=== PATIENT | female | born 1970 | race Hispanic/Latino ===

== ENCOUNTER 2019-02-15 09:43 | Day surgery (SDC) | payer MEDICAID ==
[~2019-02-15 09:43] MED LIST: SODIUM CHLORIDE 0.9% 1000 ML 1,000 ML IV SCH
--- NOTE | 2019-02-15 10:55 | Anesthesia Consultation ---
Anesthesia Consult and Med Hx Date of service: 02/15/19 - Airway Anesthetic Teeth Evaluation: Dentures ROM Head & Neck: Adequate Mental/Hyoid Distance: Adequate Mallampati Class: Class II Intubation Access Assessment: Probably Good - Pre-Operative Health Status ASA Pre-Surgery Classification: ASA2 Proposed Anesthetic Plan: MAC - Pulmonary Hx Smoking: Yes (1/2 ppd) Hx Asthma: No Hx Respiratory Symptoms: No SOB: No COPD: No Home Oxygen Therapy: No Hx Pneumonia: No Hx Sleep Apnea: Yes - Cardiovascular System Hx Hypertension: No Hx Coronary Artery Disease: No Hx Heart Attack/AMI: No Hx Angina: No Hx Percutaneous Transluminal Coronary Angioplasty (PTCA): No Hx Cardia Arrhythmia: No Hx Pacemaker: No Hx Internal Defibrillator: No Hx Valvular Heart Disease: No Hx Heart Murmur: No Hx Peripheral Vascular Disease: No - Central Nervous System Hx Neuromuscular Disorder: No Hx Seizures: No CVA: No Hx Back Pain: Yes Hx Psychiatric Problems: No - Gastrointestinal Hx Ulcer: Yes (SUSPECTED PUD) Hx Gastroesophageal Reflux Disease: No - Endocrine Hx Renal Disease: No Hx End Stage Renal Disease: No Hx Cirrhosis: No Hx Liver Disease: No Hx Insulin Dependent Diabetes: No Hx Non-Insulin Dependent Diabetes: No Hx Thyroid Disease: No Hx Hypothyroidism: No Hx Hyperthyroidism: No - Other Systems Hx Alcohol Use: No Hx Substance Use: No Hx Cancer: No Hx Obesity: Yes
--- NOTE | 2019-02-15 10:58 | Anesthesia Day of Surgery ---
Anesthesia Day of Surgery - Day of Surgery Patient Examined: Yes Patient H&P Reviewed: Yes Patient is NPO: Yes Beta Blockers: No
[2019-02-15] MEDS ORDERED: LIDOCAINE MPF (2%) 20 MG/1 ML VIAL 5 ML ONE (11:00)
[2019-02-15] MEDS ORDERED: HYDROmorphone 1 MG/1 ML INJ ONE (11:04)
[2019-02-15] MEDS ORDERED: PROPOFOL 200 MG/20 ML VIAL IV ONE ×2 (12:26)
--- NOTE | 2019-02-15 12:52 | Procedure Note ---
Date of procedure: 02/15/19 Pre-op diagnosis: Abdominal Pain/Dyspepsia/H/O NSAID and Tobscco use Post-op diagnosis: other (No Peptic Ulcer Disease noted/Mild to Moderate Erosive Esophagitis/R/O Eosinophilic Esophagitis/Gastritis/R/O Celiac Disease) Procedure: EGD with Biopsy Anesthesia: WERO Surgeon: DEBRA NORTON Estimated blood loss: minimal Pathology: list Specimen disposition: to lab Condition: stable Disposition: same day
--- NOTE | 2019-02-15 13:09 | Operative Report ---
PROCEDURE: Esophagogastroduodenoscopy with biopsy. INDICATIONS: This is a 48-year-old white female originally from [place], who has been having some abdominal pain and dyspeptic symptoms. She has a history of smoking and also has a history of NSAID use on a regular basis because of some dental pain. She has been having some abdominal pain and discomfort as well as dyspeptic symptoms. EGD was done to rule out for possible associated peptic ulcer disease. PROCEDURE: Procedure was done after getting informed consent with MAC anesthesia. Instrument was passed through the hypopharynx into the esophagus, which showed some mild to moderate distal erosive esophagitis. Biopsy was done from the midesophagus to rule out for eosinophilic esophagitis. Stomach showed some mild antral gastritis. No ulcers noted within the gastric lumen either in the straight or the retroverted view. The pylorus was patent. The duodenum in the first and second portion appeared normal. There was no duodenal ulcer noted. Biopsy was done from the second part to rule out for possible celiac disease. Additional biopsy was done from the gastric antrum, gastric body and angular incisura to rule out for H. pylori and atrophic gastritis. There was minimal bleeding associated with the procedure. No complications associated with the procedure. ASSESSMENT: Abdominal pain, dyspepsia, history of non-steroidal anti-inflammatory drug use. No peptic ulcer disease noted. The patient also has a history of smoking. Mild to moderate distal erosive esophagitis, rule out eosinophilic esophagitis, gastritis, rule out celiac disease. PLAN: To treat the patient with PPI, p.r.n. dose of Bentyl, avoid aspirin and aspirin-related products for the next few days. Labs will be checked to follow lipase as well as liver function test and CBC. The patient may require an MRCP to be done as an outpatient to make sure that she does not have any biliary pathology going. She states that she had gone to the ER and was told that she may have a slightly dilated CBD. She still has a gallbladder, but was told that her liver function test was normal at the time. She will be asked to avoid aspirin and aspirin-related products over the next few days and also to refrain from smoking. Procedure was done in the GI lab with assistance of the GI lab team, which included Priya MADISON, Sony yanes and with assistance of anesthesia. JOB# [id number] BRADLEY/OUSMANE
[2019-02-15 13:13] LABS: Basophils # (Auto) 0.1 K/mm3 (0.0-0.1); Basophils % (Auto) 1.7 % (0.0-1.8); Eosinophils # (Auto) 0.1 K/mm3 (0.0-0.4); Eosinophils % (Auto) 1.9 % (0.0-4.3); Hematocrit 38.4 % (30.3-42.9); Lymphocytes # (Auto) 2.8 K/mm3 (1.2-5.4); Lymphocytes % (Auto) 38.2 % (13.4-35.0); Mean Corpuscular HGB Conc 34 % (30-34); Mean Corpuscular Volume 94 fl (79-97); Monocytes # (Auto) 0.3 K/mm3 (0.0-0.8); Monocytes % (Auto) 4.5 % (0.0-7.3); Platelet Count 241 K/mm3 (140-440); Red Blood Count 4.09 M/mm3 (3.65-5.03); Red Cell Distribution Width 12.8 % (13.2-15.2)
[2019-02-15 13:24] VITALS: BP 95/59
[2019-02-15 13:29] LABS: Alanine Aminotransferase 14 units/L (7-56); Albumin 3.6 g/dL (3.9-5)
[2019-02-15 13:37] LABS: Bilirubin,Direct < 0.2 mg/dL (0-0.2)
--- NOTE | 2019-02-15 16:10 | Post Anesthesia Evaluation ---
- Post Anesthesia Evaluation Patient Participated: Yes Airway Patent: Yes Stable Respiratory Function: Yes Nausea/Vomiting: No Temp > 96.8F: Yes Pain Manageable: Yes Adequeate Hydration: Yes Anesthesia Complications: No Block Receding Appropriately: Not Applicable Patient on Ventilator: No
== END 2019-02-15 09:44 | disposition home or self-care (01) ==
LOC: GIO 09:43
DX: K30 Functional dyspepsia (principal); R10.9 Unspecified abdominal pain; K21.0 Gastro-esophageal reflux disease with esophagitis; K31.89 Other diseases of stomach and duodenum; K29.50 Unspecified chronic gastritis without bleeding; B96.81 Helicobacter pylori [H. pylori] as the cause of diseases classified elsewhere; G47.30 Sleep apnea, unspecified; F17.210 Nicotine dependence, cigarettes, uncomplicated; E66.9 Obesity, unspecified; Z80.8 Family history of malignant neoplasm of other organs or systems; Z79.899 Other long term (current) drug therapy; Z68.32 Body mass index [BMI] 32.0-32.9, adult
CPT/HCPCS: 36415; 43239; 80076; 81025; 83690; 85025; 88305; 88342; J1170; J2704; J7030

== ENCOUNTER 2019-04-12 08:56 | Day surgery (SDC) | payer MEDICAID ==
[~2019-04-12 08:56] MED LIST changes: -SODIUM CHLORIDE 0.9% 1000 ML 1,000 ML IV SCH; +WATER FOR IRRIG STERILE 250 ML BOTTLE IR ONE
[2019-04-12] MEDS ORDERED: LIDOCAINE MPF (2%) 20 MG/1 ML VIAL 5 ML ONE (09:00)
[2019-04-12] MEDS ORDERED: SODIUM CHLORIDE 0.9% 1000 ML 1,000 ML ONE (09:24)
--- NOTE | 2019-04-12 09:39 | Anesthesia Consultation ---
Anesthesia Consult and Med Hx Date of service: 04/12/19 - Airway Anesthetic Teeth Evaluation: Good ROM Head & Neck: Adequate Mental/Hyoid Distance: Adequate Mallampati Class: Class II Intubation Access Assessment: Probably Good - Pre-Operative Health Status ASA Pre-Surgery Classification: ASA3 Proposed Anesthetic Plan: MAC - Pulmonary Hx Smoking: Yes (1/2 ppd) Hx Asthma: No Hx Respiratory Symptoms: No SOB: No COPD: No Hx Pneumonia: No Hx Sleep Apnea: Yes - Cardiovascular System Hx Hypertension: No Hx Coronary Artery Disease: No Hx Heart Attack/AMI: No Hx Angina: No Hx Percutaneous Transluminal Coronary Angioplasty (PTCA): No Hx Cardia Arrhythmia: No Hx Pacemaker: No Hx Internal Defibrillator: No Hx Valvular Heart Disease: No Hx Heart Murmur: No Hx Peripheral Vascular Disease: No - Central Nervous System Hx Neuromuscular Disorder: No Hx Seizures: No CVA: No Hx Back Pain: Yes Hx Psychiatric Problems: No - Gastrointestinal Hx Ulcer: Yes (SUSPECTED PUD) Hx Gastroesophageal Reflux Disease: No - Endocrine Hx Renal Disease: No Hx End Stage Renal Disease: No Hx Cirrhosis: No Hx Liver Disease: No Hx Insulin Dependent Diabetes: No Hx Non-Insulin Dependent Diabetes: No Hx Thyroid Disease: No Hx Hypothyroidism: No Hx Hyperthyroidism: No - Other Systems Hx Alcohol Use: No Hx Substance Use: No Hx Cancer: Yes (mouth and throat CA recently diagnosed ) Hx Obesity: Yes
--- NOTE | 2019-04-12 09:39 | Anesthesia Day of Surgery ---
Anesthesia Day of Surgery - Day of Surgery Patient Examined: Yes Patient H&P Reviewed: Yes Patient is NPO: Yes Beta Blockers: No
[2019-04-12] MEDS ORDERED: SODIUM CHLORIDE 0.9% 1000 ML 1,000 ML IV SCH (09:45)
[2019-04-12] MEDS ORDERED: PROPOFOL 200 MG/20 ML VIAL IV ONE ×2 (09:52)
--- NOTE | 2019-04-12 10:41 | Operative Report ---
PROCEDURE: Colonoscopy with biopsy and hot snare polypectomy. INDICATIONS: Tez Jose is a 48-year-old white female who previously has had an EGD done, which showed presence of H. pylori gastritis for which she has been treated. She also has a recent diagnosis of oral cancer for which she is to have some treatment done, has been complaining of persistent abdominal pain and diarrhea. Colonoscopy was done to assess for any significant colon pathology. DESCRIPTION OF PROCEDURE: The procedure was done after getting informed consent with MAC anesthesia. Initial rectal exam was unremarkable. Instrument was passed through the rectum onto the cecum, which was identified with ileocecal valve and the appendiceal orifice. Visualization was fair to good. There was a 10-11 mm polyp noted in the cecum that was removed by snare polypectomy, heat was applied, and the edges of the polyp was then cauterized with the tip of the polypectomy snare. The polyp was retrieved. There was no significant bleeding from the polypectomy site. The terminal ileum was intubated and showed normal mucosa. Biopsy was done to rule out for possible ileitis. Cecum, ascending colon, transverse colon showed normal mucosa. There was moderate diverticular disease noted in the left colon and the rectum showed some minor internal hemorrhoid on the retroverted view. Random biopsies were done throughout the colon to rule out for possible microscopic colitis. ASSESSMENT: Abdominal pain, diarrhea, history of oral cancer, cecal polyps solitary about 10-11 mm in diameter, moderate left colon diverticula, rule out ileitis, rule out microscopic colitis, minor internal hemorrhoid. PLAN: The plan is to encourage the patient to avoid aspirin and aspirin-related products for the next 4 days, but otherwise resume home medication. Treat the patient with Imodium A-D p.r.n. for diarrhea. Await for the biopsy results. Further treatment adjustment will be according to the biopsy findings and after a week or so, encouraged the patient to take fiber supplements because of her diverticular disease. Again, there was minimal bleeding associated with the procedure. No complications associated with the procedure. Procedure was done in the GI lab with assistance of the GI lab team, which included phyllis Nicolas Loretta and with assistance of anesthesia. JOB# [id number] BRADLEY/OUSMANE
[2019-04-12 11:16] VITALS: BP 111/70
--- NOTE | 2019-04-12 11:32 | Procedure Note ---
Date of procedure: 04/12/19 Pre-op diagnosis: Abdominal Pain /Diarrhea Post-op diagnosis: other (Cecal Polyp (snare excised)/Moderate,Left colon Diverticuli/R/O Ileitis/R/O Microscopic Colitis/ Minor,Internal Hemorrhoid) Procedure: Colonoscopy with Hot, Snare Polypectomy and Cold Biopsy Anesthesia: [facility] [place] Surgeon: DEBRA NORTON Estimated blood loss: minimal Pathology: list Specimen disposition: to lab Condition: stable Disposition: same day (Avoid aspirin and NSAID for 4 days; otherwise resume home medication. Encourage fiber intake and tadke Imodium AD, OTC, prn for diarrhea. Follow up in 1 to 2 weeks ([phone]).)
== END 2019-04-12 08:57 | disposition home or self-care (01) ==
LOC: GIO 08:56
DX: R19.7 Diarrhea, unspecified (principal); K63.5 Polyp of colon; K63.89 Other specified diseases of intestine; K64.8 Other hemorrhoids; R10.9 Unspecified abdominal pain; K57.30 Diverticulosis of large intestine without perforation or abscess without bleeding; K20.9 Esophagitis, unspecified; F17.210 Nicotine dependence, cigarettes, uncomplicated; G47.30 Sleep apnea, unspecified; E66.9 Obesity, unspecified; Z68.31 Body mass index [BMI] 31.0-31.9, adult; Z79.899 Other long term (current) drug therapy; Z98.890 Other specified postprocedural states; Z80.8 Family history of malignant neoplasm of other organs or systems; Z98.82 Breast implant status; Z85.818 Personal history of malignant neoplasm of other sites of lip, oral cavity, and pharynx
CPT/HCPCS: 45380; 45385; 81025; 88305; J2704; J7030